=== PATIENT | female | born 1955 | race African-American/Black ===

== ENCOUNTER 2016-12-15 18:17 | Emergency (ER) | payer OTHER ==
[2016-12-15 18:25] VITALS: PULSE 55; TEMP 97.9; BMI 40.3
[2016-12-15] MEDS ORDERED: OXYCODONE/APAP 5/325MG COMBO TABLET PO ONE (19:56)
[2016-12-15] MEDS ORDERED: SODIUM CHLORIDE 1,000 ML IV SCH (20:00)
[2016-12-15] MEDS ORDERED: OXYCODONE/APAP 5/325MG COMBO TABLET ONE (20:04)
--- NOTE | 2016-12-15 20:05 | PDOC ---
History of Present Illness - General Chief Complaint: Injury Stated Complaint: PAIN Time Seen by Provider: 12/15/16 19:42 History Source: Patient Exam Limitations: No Limitations - History of Present Illness Initial Comments: 12/15/16 20:02 61yo Female patient presented to ED c/o bilateral knee pain. Patient states while trying to enter an ambulate she lost her balance while stepping up to enter the van. She reports she fell backwards, causing her left leg to bend behind her and right leg to "twist." Patient was helped back into wheelchair by staff and transported to her PCP office for appointment. Patient states she uses wheelchair all the time. She no longer ambulates independently or uses a cane or walker. Patient now reports while trying to get out of bed and around today, she is having increased pain, and feeling of something "floating" in her right knee. She reports hx total rt knee replacement in 2005, and severe arthritis to Lt knee. Patient reports taking Motrin and Tylenol with no relief of pain to knees. She denies CP, Abd pain, n/v/d, diff breathing, head or neck injury, or any other complaints at this time. Timing/Duration: getting worse Severity: moderate Modifying Factors: improves with: medication, rest Associated Symptoms: denies: denies symptoms, chest pain, cough, diaphoresis, fever/chills, headaches, loss of appetite, malaise, nausea/vomiting, rash, seizure, shortness of breath, syncope, weakness, other Past History - Travel Traveled outside of the country in the last 30 days: No Close contact w/someone who was outside of country & ill: No - Past Medical History Allergies/Adverse Reactions: Allergies Allergy/AdvReac Type Severity Reaction Status Date / Time morphine Allergy Verified 12/15/16 18:25 Home Medications: Ambulatory Orders Amlodipine Besylate [Norvasc -] 10 mg PO BID 10/02/14 Calcium Carbonate/Vitamin D3 [Calcium 500 + D Tablet] 1 each PO BID 10/02/14 Ferrous Sulfate [Feosol] 5 gm PO BID 10/02/14 Multivitamins [Multivit ([facility] Formulary)] 1 tab PO BID 10/02/14 Atenolol [Tenormin -] 1 tab PO DAILY 09/06/15 Cyanocobalamin [Vitamin B12 -] 1,000 mcg PO DAILY 12/15/16 Enalapril Maleate [Vasotec -] 10 mg PO BID 12/15/16 Lidocaine 5% Patch [Lidoderm -] 1 patch TP DAILY 12/15/16 Lorazepam [Ativan] 1 mg PO DAILY 12/15/16 Olopatadine HCl [Pataday] 2.5 ml OP TID 12/15/16 Oxycodone HCl/Acetaminophen [Percocet 10-325 mg Tablet] 1 each PO Q6H PRN #20 tablet MDD 4 TABS 12/16/16 Anemia: No Asthma: No Cancer: No Cardiac Disorders: No CVA: No COPD: No CHF: No Dementia: No Diabetes: No GI Disorders: No Disorders: No HTN: Yes Hypercholesterolemia: No Liver Disease: No Seizures: No Thyroid Disease: No - Surgical History Abdominal Surgery: Yes (GASTRIC BYPASS) Appendectomy: Yes Cardiac Surgery: No Cholecystectomy: Yes (10/05/14) Lung Surgery: No Neurologic Surgery: No Orthopedic Surgery: Yes (TOTAL R KNEE REPLACEMENT) - Psycho/Social/Smoking Cessation Hx Suicidal Ideation: No Smoking History: Never smoked Have you smoked in the past 12 months: No Information on smoking cessation initiated: No Hx Alcohol Use: No Drug/Substance Use Hx: No Substance Use Type: None Hx Substance Use Treatment: No Review of Systems - Review of Systems Able to Perform ROS?: Yes Is the patient limited [place] proficient: No Constitutional: No: Chills, Fever, Night Sweats, Weakness HEENTM: No: Blurred Vision, Double Vision, Nose Congestion, Throat Swelling Respiratory: No: Cough, Shortness of Breath, Stridor, Wheezing Cardiac (ROS): No: Chest Pain, Edema, Palpitations ABD/GI: No: Constipated, Diarrhea, Nausea, Poor Appetite, Poor Fluid Intake, Vomiting : No: Burning, Dysuria, Discharge, Frequency, Flank Pain, Hematuria, Pain, Urgency Musculoskeletal: Yes: Joint Pain, Joint Swelling, Muscle Weakness (Chronic). No : Back Pain, Muscle Pain, Neck Pain Integumentary: No: Dryness, Erythema, Rash Neurological: No: Headache, Numbness, Paresthesia, Seizure, Tingling, Tremors, Weakness, Ataxia, Dizziness Psychiatric: Yes: Anxiety. No: Depression All Other Systems: Reviewed and Negative *Physical Exam - Vital Signs Last Vital Signs Temp Pulse Resp BP Pulse Ox 97.9 F 55 L 17 155/97 98 12/15/16 18:23 12/15/16 18:23 12/15/16 18:23 12/15/16 18:23 12/15/16 18:23 - Physical Exam General Appearance: Yes: Nourished, Appropriately Dressed, Moderate Distress. No: Apparent Distress HEENT: positive: EOMI, TACO, Normal ENT Inspection, Normal Voice, Symmetrical, Pharynx Normal. negative: Nasal Congestion, Rhinorrhea, TM Bulging, TM Dull, TM Erythema Neck: positive: Trachea midline, Supple. negative: Tender, Rigid, Decreased range of motion, Stridor, Lymphadenopathy (R), Lymphadenopathy (L), Tender lateral, Tender midline Respiratory/Chest: positive: Lungs Clear, Normal Breath Sounds. negative: Respiratory Distress, Accessory Muscle Use, Labored Respiration, Rapid RR, Decreased Breath Sounds, Rhonchi, Stridor, Wheezing Cardiovascular: positive: Regular Rhythm, Regular Rate. negative: Edema, JVD, Murmur Gastrointestinal/Abdominal: positive: Normal Bowel Sounds, Soft. negative: Guarding, Rebound, Tenderness Musculoskeletal: positive: Normal Inspection. negative: CVA Tenderness, Decreased Range of Motion Extremity: positive: Normal Capillary Refill, Swelling, Other (Decreased ROM and moderate pain on passive ROM to Rt and Lt lower extremity. Moderate swelling to Rt knee w/o increased warmth or erythema.). negative: Normal Range of Motion, Erythema, Inflammation Integumentary: positive: Normal Color, Dry, Warm Neurologic: positive: insights manager II-XII NML intact, Fully Oriented, Alert, Normal Mood/ Affect, Normal Response ED Treatment Course - LABORATORY CBC & Chemistry Diagram: 12/15/16 20:10 12/15/16 20:10 - RADIOLOGY Radiology Studies Ordered: Category Date Time Status KNEE 2 POS-LEFT [RAD] Stat Radiology 12/15/16 19:55 Ordered KNEE 2 POS-RIGHT [RAD] Stat Radiology 12/15/16 19:55 Ordered *DC/Admit/Observation/Transfer Diagnosis at time of Disposition: Fall Qualifiers: Encounter type: initial encounter Qualified Code(s): W19.XXXA - Unspecified fall, initial encounter Knee pain, bilateral Qualifiers: Chronicity: acute Qualified Code(s): M25.561 - Pain in right knee; M25.562 - Pain in left knee Obesity Qualifiers: Obesity type: unspecified obesity type Obesity severity: morbid Qualified Code( s): E66.01 - Morbid (severe) obesity due to excess calories - Discharge Dispostion Disposition: HOME Condition at time of disposition: Improved Admit: No - Prescriptions Prescriptions: Oxycodone HCl/Acetaminophen [Percocet 10-325 mg Tablet] 1 each PO Q6H PRN #20 tablet MDD 4 TABS PRN Reason: Severe Pain - Patient Instructions Printed Discharge Instructions: DI for Knee Pain, How to Prevent Falls Additional Instructions: FOLLOW UP WITH YOUR DOCTOR DISCUSSED. TAKE MEDICATIONS PRESCRIBED. CALL TO SCHEDULE YOUR APPOINTMENT WITH YOUR DOCTOR. PERCOCET FOR PAIN NEEDED. APPLY COOL COMPRESS TO AFFECTED AREA EVERY 2 HOURS WHILE AWAKE FOR 10-15 MINS NEEDED ON AND OFF. Print Language: CROATIAN
[2016-12-15 21:45] LABS: BASOPHIL 0.5 % (0-2.0); EOSINOPHIL 2.1 % (0-4.5); MCHC 34.7 g/dl (32.0-36.0); MEAN CELL VOLUME 83.7 fl (80-96); MEAN PLT VOLUME 8.6 fl (7.5-11.1); NEUTROPHILS 51.8 % (42.8-82.8); PLATELET COUNT 213 K/MM3 (134-434); RDW 13.7 % (11.6-15.6); WHITE BLOOD COUNT 6.7 K/mm3 (4.0-10.0)
[2016-12-15 21:57] LABS: INR 1.27 (0.82-1.09)
[2016-12-15 22:09] LABS: ALBUMIN 3.4 g/dl (3.4-5.0); CALCIUM 8.7 mg/dL (8.5-10.1)
[2016-12-15 22:12] LABS: BILIRUBIN,TOTAL 0.7 mg/dL (0.2-1.0); TOT PROT 7.6 g/dl (6.4-8.2)
[2016-12-16 00:39] VITALS: BP 144/69
[2016-12-16] MEDS ORDERED: IBUPROFEN 400 MG TABLET (FP) PO ONE ×2 (01:43→01:48)
[2016-12-16] MEDS ORDERED: OXYCODONE/APAP 5/325MG COMBO TABLET PO ONE (01:43)
[2016-12-16] MEDS ORDERED: OXYCODONE/APAP 5/325MG COMBO TABLET ONE (01:48)
== END 2016-12-16 01:54 | disposition home or self-care (01) ==
LOC: JER 18:17
DX: M25.561 Pain in right knee (principal); M25.562 Pain in left knee; W17.89XA Other fall from one level to another, initial encounter; Y93.89 Activity, other specified; Y92.410 Unspecified street and highway as the place of occurrence of the external cause; Z98.84 Bariatric surgery status; Z96.651 Presence of right artificial knee joint; E66.01 Morbid (severe) obesity due to excess calories; Z68.41 Body mass index [BMI] 40.0-44.9, adult
CPT/HCPCS: 36415; 73560-TC-LT; 73560-TC-RT; 80053; 85025; 85610; 86850; 86900; 86901; 99281-25

== ENCOUNTER 2017-11-26 17:12 | Inpatient (IN) | payer OTHER ==
[2017-11-26 17:42] VITALS: BMI 36.0
--- NOTE | 2017-11-26 17:44 | PDOC ---
Rapid Medical Evaluation Time Seen by Provider: 11/26/17 17:39 Medical Evaluation: Allergies Allergy/AdvReac Type Severity Reaction Status Date / Time morphine Allergy Verified 11/26/17 17:39 11/26/17 17:39 Pt presents to the ED: dark red blood from rectum with defecation, vomiting up dark red blood, upper abd pain , denies asa, motrin use, denies gerd, hx gastric bypass in 2007 Pt on brief exam: vss, tender to epigastric area Pt ordered for: cbc, comp, ua Pt to proceed to the ED Discharge Disposition - Diagnosis Rectal bleeding - Referrals - Patient Instructions - Post Discharge Activity
[2017-11-26 18:05] LABS: BASO % 1.4 % (0-2.0); EOS % 1.3 % (0-4.5); HEMATOCRIT 37.3 % (32.4-45.2); HEMOGLOBIN 12.9 GM/dL (10.7-15.3); LYMPH % 46.6 % (8-40); MCH 29.9 pg (25.7-33.7); MCHC 34.5 g/dl (32.0-36.0); MEAN CELL VOLUME 86.5 fl (80-96); MEAN PLT VOLUME 8.3 fl (7.5-11.1); MONO % 7.2 % (3.8-10.2); NEUT % 43.5 % (42.8-82.8); PLATELET COUNT 229 K/MM3 (134-434); RBC 4.31 M/mm3 (3.60-5.2); RDW 13.4 % (11.6-15.6); WHITE BLOOD COUNT 6.5 K/mm3 (4.0-10.0)
[2017-11-26 18:32] LABS: URINE APPEARANCE CLEAR; URINE BILIRUBIN NEGATIVE (NEGATIVE); URINE BLOOD NEGATIVE (NEGATIVE); URINE COLOR YELLOW; URINE GLUCOSE (UA) NEGATIVE (NEGATIVE); URINE KETONE NEGATIVE (NEGATIVE); URINE LEUK ESTERASE NEGATIVE (NEGATIVE); URINE NITRITE NEGATIVE (NEGATIVE); URINE PROTEIN NEGATIVE (NEGATIVE); URINE UROBILINOGEN 4.0 E.U/dl mg/dL (0.2-1.0)
[2017-11-26 18:37] LABS: ALBUMIN 3.2 g/dl (3.4-5.0); ALK PHOS 59 U/L (45-117); ANION GAP 11 (8-16); BILIRUBIN,TOTAL 0.5 mg/dL (0.2-1.0); BLOOD UREA NITROGEN 29 mg/dL (7-18); CALCIUM 8.8 mg/dL (8.5-10.1); CHLORIDE 112 mmol/L (98-107); CO2 21 mmol/L (21-32); GLUCOSE,RANDOM 99 mg/dL (74-106); SGOT/AST 47 U/L (15-37); SGPT/ALT 37 U/L (12-78); SODIUM 144 mmol/L (136-145); TOT PROT 7.1 g/dl (6.4-8.2)
[2017-11-26] MEDS ORDERED: PANTOPRAZOLE SODIUM 40 MG VIAL IVPUSH ONE (19:34)
[2017-11-26] MEDS ORDERED: SODIUM CHLORIDE 0.9% 1000 ML INFUS.BAG IV ONE (19:36)
[2017-11-26] MEDS ORDERED: PANTOPRAZOLE SODIUM 40 MG/100 ML BAG IVPB ONE (19:42)
--- NOTE | 2017-11-26 19:43 | PDOC ---
History of Present Illness - General History Source: Patient Exam Limitations: No Limitations - History of Present Illness Initial Comments: 11/26/17 19:45 The patient is a 62 year old female, with a significant past medical history of gastric bypass, appendectomy, cholecystectomy, who presents to the emergency department with one episode of black stool 2 days ago followed by one episode of vomiting a bright red clump of blood yesterday, and new onset of dark blood with a bowel movement today. The patient states she had one very dark stool 2 days ago. The patient reportedly experienced a strange feeling in her throat yesterday and forced up a clump of bright red. She denies recent pepto bismol use. She denies aspiring use and states she only uses Tylenol. She denies experiencing these symptoms in the past. She denies chest pain, shortness of breath, headache and dizziness. She denies fever, chills, nausea, diarrhea and constipation. She denies dysuria, frequency , urgency and hematuria. Allergies: morphine Social history: Pt denies tobacco use or alcohol use. PCP: Dr. Villavicencio <Elza Rock - Last Filed: 11/26/17 19:50> <Tana Faustin - Last Filed: 11/26/17 20:46> - General Chief Complaint: Rectal Bleed Stated Complaint: RECTAL BLEEDING Time Seen by Provider: 11/26/17 17:39 Past History <Elza Rock - Last Filed: 11/26/17 19:50> - Past Medical History Anemia: No Asthma: No Cancer: No Cardiac Disorders: No CVA: No COPD: No CHF: No Dementia: No Diabetes: No GI Disorders: No Disorders: No HTN: Yes Hypercholesterolemia: No Liver Disease: No Seizures: No Thyroid Disease: No - Surgical History Abdominal Surgery: Yes (GASTRIC BYPASS) Appendectomy: Yes Cardiac Surgery: No Cholecystectomy: Yes (10/05/14) Lung Surgery: No Neurologic Surgery: No Orthopedic Surgery: Yes (TOTAL R KNEE REPLACEMENT) - Suicide/Smoking/Psychosocial Hx Smoking History: Never smoked Have you smoked in the past 12 months: No Hx Alcohol Use: No Drug/Substance Use Hx: No Substance Use Type: None Hx Substance Use Treatment: No <Tana Faustin - Last Filed: 11/26/17 20:46> - Past Medical History Allergies/Adverse Reactions: Allergies Allergy/AdvReac Type Severity Reaction Status Date / Time morphine Allergy Verified 11/26/17 17:39 Home Medications: Ambulatory Orders Calcium Carbonate/Vitamin D3 [Calcium 500 + D Tablet] 1 each PO BID 10/02/14 Ferrous Sulfate [Feosol] 325 gm PO BID 10/02/14 Multivitamins [Multivit ([facility] Formulary)] 1 tab PO BID 10/02/14 Atenolol [Tenormin -] 100 tab PO DAILY 09/06/15 Cyanocobalamin [Vitamin B12 -] 1,000 mcg PO DAILY 12/15/16 Enalapril Maleate [Vasotec -] 10 mg PO BID 12/15/16 Lorazepam [Ativan] 1 mg PO DAILY 12/15/16 Oxycodone HCl/Acetaminophen [Percocet 10-325 mg Tablet] 1 each PO Q6H PRN #20 tablet MDD 4 TABS 12/16/16 Diphenhydramine [Benadryl -] 25 mg PO BID 11/26/17 Escitalopram Oxalate [Lexapro -] 10 mg PO DAILY 11/26/17 Valacyclovir HCl [Valtrex -] 500 mg PO BID 11/26/17 Review of Systems - Review of Systems Able to Perform ROS?: Yes Comments:: 11/26/17 19:46 GENERAL/CONSTITUTIONAL: No fever or chills. No weakness. HEAD, EYES, EARS, NOSE AND THROAT: No change in vision. No ear pain or discharge. No sore throat. GASTROINTESTINAL: (+) black stools, bright red blood per rectum, and hematemesis. No nausea, diarrhea or constipation. GENITOURINARY: No dysuria, frequency, or change in urination. CARDIOVASCULAR: No chest pain or shortness of breath. RESPIRATORY: No cough, wheezing, or hemoptysis. MUSCULOSKELETAL: No joint or muscle swelling or pain. No neck or back pain. SKIN: No rash NEUROLOGIC: No headache, vertigo, loss of consciousness, or change in strength/ sensation. ENDOCRINE: No increased thirst. No abnormal weight change. HEMATOLOGIC/LYMPHATIC: No anemia, easy bleeding, or history of blood clots. ALLERGIC/IMMUNOLOGIC: No hives or skin allergy. <Elza Rock - Last Filed: 11/26/17 19:50> *Physical Exam - Vital Signs Last Vital Signs Temp Pulse Resp BP Pulse Ox 98.4 F 60 19 128/80 100 11/26/17 17:39 11/26/17 17:39 11/26/17 17:39 11/26/17 17:39 11/26/17 17:39 - Physical Exam Comments: 11/26/17 19:47 Constitutional: Awake, alert, oriented. No acute distress. Head: Normocephalic. Atraumatic Eyes: PERRL. EOMI. Conjunctivae are not pale. ENT: Mucous membranes are moist and intact. Posterior pharynx without exudates or erythema. Uvula midline. Neck: Supple. Full ROM. No lymphadenopathy. Cardiovascular: Regular rate. Regular rhythm. S1, S2 regular. Distal pulses are 2+ and symmetric. Pulmonary/Chest: No evidence of respiratory distress. Clear to auscultation bilaterally No wheezing, rales or rhonchi. Abdominal: Soft and non-distended. There is no tenderness. No rebound, guarding or rigidity. No organomegaly. No palpable masses. Good bowel sounds. Rectal: (+) black stool in rectal vault. No masses or hemorrhoids. Back: No CVA tenderness. Musculoskeletal: No edema. No cyanosis. No clubbing. Full range of motion in all extremities. No calf tenderness. Radial/pedal pulses are intact and 2+ bilaterally Skin: Skin is warm and dry. No petechiae. No purpura. Neurological: Alert and oriented to person, place, and time. Cranial nerves II -XII are grossly intact. Normal speech. Strength is grossly symmetric. No sensory deficits. Psychiatric: Good eye contact. Normal interaction, affect and behavior. <Elza Rock - Last Filed: 11/26/17 19:50> - Vital Signs Last Vital Signs Temp Pulse Resp BP Pulse Ox 98.4 F 60 19 128/80 100 11/26/17 17:39 11/26/17 17:39 11/26/17 17:39 11/26/17 17:39 11/26/17 17:39 <Tana Faustin - Last Filed: 11/26/17 20:46> Heart Score/ECG Review - ECG Intrepretation Comment:: 11/26/17 20:45 sinus aimee at 54, nl axis, nl interval, q waves anteriorly that are age indeterminate, baseline artifact, no acute changes <Tana Faustin - Last Filed: 11/26/17 20:46> ED Treatment Course - LABORATORY CBC & Chemistry Diagram: 11/26/17 18:00 11/26/17 18:00 - ADDITIONAL ORDERS Additional order review: Laboratory Results 11/26/17 11/26/17 18:20 18:00 Sodium 144 Potassium 4.0 Chloride 112 H Carbon Dioxide 21 Anion Gap 11 BUN 29 H D Creatinine 1.0 Creat Clearance w eGFR 56.00 Random Glucose 99 Calcium 8.8 Total Bilirubin 0.5 D AST 47 H ALT 37 Alkaline Phosphatase 59 Total Protein 7.1 Albumin 3.2 L Urine Color Yellow Urine Appearance Clear Urine pH 7.0 Ur Specific [place] 1.026 Urine Protein Negative Urine Glucose (UA) Negative Urine Ketones Negative Urine Blood Negative Urine Nitrite Negative Urine Bilirubin Negative Urine Urobilinogen 4.0 e.u/dl H Ur Leukocyte Esterase Negative 11/26/17 18:00 RBC 4.31 MCV 86.5 MCHC 34.5 RDW 13.4 MPV 8.3 Neutrophils % 43.5 Lymphocytes % 46.6 H D Monocytes % 7.2 Eosinophils % 1.3 Basophils % 1.4 <Elza Rock - Last Filed: 11/26/17 19:50> - LABORATORY CBC & Chemistry Diagram: 11/26/17 18:00 11/26/17 18:00 - ADDITIONAL ORDERS Additional order review: Laboratory Results 11/26/17 11/26/17 18:20 18:00 Sodium 144 Potassium 4.0 Chloride 112 H Carbon Dioxide 21 Anion Gap 11 BUN 29 H D Creatinine 1.0 Creat Clearance w eGFR 56.00 Random Glucose 99 Calcium 8.8 Total Bilirubin 0.5 D AST 47 H ALT 37 Alkaline Phosphatase 59 Total Protein 7.1 Albumin 3.2 L Urine Color Yellow Urine Appearance Clear Urine pH 7.0 Ur Specific [place] 1.026 Urine Protein Negative Urine Glucose (UA) Negative Urine Ketones Negative Urine Blood Negative Urine Nitrite Negative Urine Bilirubin Negative Urine Urobilinogen 4.0 e.u/dl H Ur Leukocyte Esterase Negative 11/26/17 18:00 RBC 4.31 MCV 86.5 MCHC 34.5 RDW 13.4 MPV 8.3 Neutrophils % 43.5 Lymphocytes % 46.6 H D Monocytes % 7.2 Eosinophils % 1.3 Basophils % 1.4 <Tana Faustin - Last Filed: 11/26/17 20:46> Medical Decision Making - Medical Decision Making 11/26/17 19:34 A message was left requesting a call back from Dr. Kassandra Villavicencio regarding patient admission. 11/26/17 19:38 Dr. Villavicencio called back and the patient's case was discussed. She accepts admission and requests Dr. Tidwell for GI consult. 11/26/17 19:42 Patient case discussed with Dr. Tidwell, GI specialist. <Elza Rock - Last Filed: 11/26/17 19:50> - Medical Decision Making 11/26/17 19:37 a/p: 62yo female with symptoms concerning for UGIB -hx of gastric bypass -gi at [facility] -will check labs -will give PPI -will repeat H/H -will need admission -stool for heme -black stool on rectal -tele -ekg -cxr case discussed with Dr. Villavicencio who accepts pt to service. Requests GI to be Dr. Tidwell. call placed to DR. Tidwell 11/26/17 20:[address] Tidwell who will see the patient in consult. <Tana Faustin - Last Filed: 11/26/17 20:46> *DC/Admit/Observation/Transfer - Attestations Scribe Attestion: 11/26/17 19:48 Documentation prepared by Elza Rock, acting as medical record retrieval specialist for Tana Faustin DO, <Elza Rock - Last Filed: 11/26/17 19:50> - Discharge Dispostion Admit: Yes - Attestations Physician Attestion: 11/26/17 19:45 I, Dr. Tana Faustin DO, attest that this document has been prepared under my direction and personally reviewed by me in its entirety. I further attest, that it accurately reflects all work, treatment, procedures and medical decision -making performed by me. <Tana Faustin - Last Filed: 11/26/17 20:46> Diagnosis at time of Disposition: UGIB (upper gastrointestinal bleed) - Discharge Dispostion Condition at time of disposition: Fair - Referrals Referrals: Kassandra Villavicencio MD [Primary Care Provider] - - Patient Instructions - Post Discharge Activity
[2017-11-26 20:36] LABS: BASO % 0.7 % (0-2.0); EOS % 1.4 % (0-4.5); HEMATOCRIT 36.5 % (32.4-45.2); HEMOGLOBIN 12.4 GM/dL (10.7-15.3); LYMPH % 47.7 % (8-40); MCH 29.9 pg (25.7-33.7); MCHC 33.9 g/dl (32.0-36.0); MEAN CELL VOLUME 88.2 fl (80-96); MEAN PLT VOLUME 8.3 fl (7.5-11.1); MONO % 7.8 % (3.8-10.2); NEUT % 42.4 % (42.8-82.8); PLATELET COUNT 209 K/MM3 (134-434); RBC 4.14 M/mm3 (3.60-5.2); RDW 13.3 % (11.6-15.6); WHITE BLOOD COUNT 5.7 K/mm3 (4.0-10.0)
[2017-11-27 06:53] LABS: BASO % 0.9 % (0-2.0); EOS % 2.1 % (0-4.5); HEMATOCRIT 30.8 % (32.4-45.2); HEMOGLOBIN 10.6 GM/dL (10.7-15.3); MCH 30.3 pg (25.7-33.7); MCHC 34.5 g/dl (32.0-36.0); MEAN CELL VOLUME 87.8 fl (80-96); MEAN PLT VOLUME 8.6 fl (7.5-11.1); MONO % 11.6 % (3.8-10.2); NEUT % 34.4 % (42.8-82.8); PLATELET COUNT 177 K/MM3 (134-434); RBC 3.51 M/mm3 (3.60-5.2); RDW 13.6 % (11.6-15.6); WHITE BLOOD COUNT 6.4 K/mm3 (4.0-10.0)
[2017-11-27] MEDS: DEXTROSE 5%-0.45% SALINE 1,000 ML IV SCH (08:20)
[2017-11-27] MEDS ORDERED: PANTOPRAZOLE SODIUM 80 MG in SODIUM CHLORIDE 100 ML IVPB SCH (09:30)
[2017-11-27] MEDS ORDERED: PANTOPRAZOLE SODIUM 40 MG VIAL ONE ×2 (09:34→09:35)
[2017-11-27] MEDS ORDERED: PANTOPRAZOLE SODIUM 40 MG VIAL IVPUSH SCH (10:00)
--- NOTE | 2017-11-27 10:03 | CON.GI ---
Consult Consult Specialty:: GI: Dr. Swanson covering for Dr. Tidwell Referred by:: Dr. Villavicencio Reason for Consultation:: GI Bleed - History of Present Illness Chief Complaint: "I had dark blood in my mouth sunday and my stool was black" History of Present Illness: 62F admitted through [facility] ER for evaluation of suspected GI bleeding. Ms. Brasher states that on Sunday in the evening she spit up dark blood and clots. Her stool was then black. yesterday she had a black / dark bloody BM and came to the ER. Initial Hgb was 12.9. This morning's Hgb was 10.6. She has not had a BM since prior to admission yesterday. She denies NSAID use including ASA and denies similar episodes in the past. She denies abdominal pain, nausea , vomiting, lightheadedness/dizziness or shortness of breath. She is followed by Dr. Adin Juarez who last performed EGD/Colonoscopy 09/02. Colonoscopy led to the removal of a cecal and sigmoid tubular adenoma while EGD revealed a gastric polyp (benign gastric mucosa, h. pylori negative) in the gastric remnant with otherwise normal appearing gastric bypass anatomy. She has been given IV fluids and protonix in ED. Vitals signs have remained stable. There is no family history of colorectal cancer or other GI malignancy. - History Source History Provided By: Patient, Medical Record Limitations to Obtaining History: No Limitations - Past Medical History Cardio/Vascular: Yes: HTN - Past Surgical History Past Surgical History: Yes: Bypass (gastric bypass, misa-en-y in 2007), Cholecystectomy (laparoscopic 2013), Joint Replacement (total right knee replacement) - Alcohol/Substance Use Hx Alcohol Use: No - Smoking History Smoking history: Never smoked Have you smoked in the past 12 months: No - Social History Usual Living Arrangement: Alone ADL: Independent Occupation: disabled Place of : [employer] History of Recent Travel: No Home Medications - Allergies Allergies/Adverse Reactions: Allergies Allergy/AdvReac Type Severity Reaction Status Date / Time morphine Allergy Verified 11/26/17 17:39 - Home Medications Home Medications: Ambulatory Orders Calcium Carbonate/Vitamin D3 [Calcium 500 + D Tablet] 1 each PO BID 10/02/14 Ferrous Sulfate [Feosol] 325 gm PO BID 10/02/14 Multivitamins [Multivit ([facility] Formulary)] 1 tab PO BID 10/02/14 Atenolol [Tenormin -] 100 tab PO DAILY 09/06/15 Cyanocobalamin [Vitamin B12 -] 1,000 mcg PO DAILY 12/15/16 Enalapril Maleate [Vasotec -] 10 mg PO BID 12/15/16 Lorazepam [Ativan] 1 mg PO DAILY 12/15/16 Oxycodone HCl/Acetaminophen [Percocet 10-325 mg Tablet] 1 each PO Q6H PRN #20 tablet MDD 4 TABS 12/16/16 Diphenhydramine [Benadryl -] 25 mg PO BID 11/26/17 Escitalopram Oxalate [Lexapro -] 10 mg PO DAILY 11/26/17 Valacyclovir HCl [Valtrex -] 500 mg PO BID 11/26/17 Family Disease History - Family Disease History Family Disease History: Other: Father ( 94: dementia), Mother (: 88: dementia), Brother (2, healthy), Sister (1, healthy), Son (none), Daughter (none ) Other Family History: no family history of colorectal cancer or other GI malignancy Review of Systems - Review of Systems Constitutional: denies: Fever Cardiovascular: denies: Chest Pain Respiratory: denies: SOB Gastrointestinal: reports: Melena, Rectal Bleeding. denies: Constipation, Nausea Musculoskeletal: reports: Back Pain Physical Exam-GI Vital Signs: Vital Signs Temperature 98.4 F 11/26/17 17:39 Pulse Rate 57 L 11/27/17 08:43 Respiratory Rate 16 11/27/17 08:43 Blood Pressure 112/64 11/27/17 08:43 O2 Sat by Pulse Oximetry (%) 99 11/27/17 08:43 Constitutional: Yes: Calm Eyes: No: Sclera Icterus Cardiovascular: Yes: Regular Rate and Rhythm. No: Murmur Respiratory: Yes: CTA Bilaterally Gastrointestinal Inspection: Yes: Scars (healed trochar scars) ...Auscultate: Yes: Normoactive Bowel Sounds ...Palpate: No: Hepatomegaly, Splenomegaly, Tenderness ...Percussion: No: Tympanitic ...Rectal Exam: Yes: Other (No external lesions, no masses, dark brown/black stool) Edema: Yes Edema: LLE: Trace, RLE: Trace Neurological: Yes: Alert, Oriented Labs: CBC, BMP 11/27/17 06:34 11/26/17 18:00 Hepatic Panel Total Bilirubin 0.5 mg/dL (0.2-1.0) D 11/26/17 18:00 AST 47 U/L (15-37) H 11/26/17 18:00 ALT 37 U/L (12-78) 11/26/17 18:00 Alkaline Phosphatase 59 U/L (45-117) 11/26/17 18:00 Albumin 3.2 g/dl (3.4-5.0) L 11/26/17 18:00 Imaging - Results X-ray: Report Reviewed Problem List - Problems (1) UGIB (upper gastrointestinal bleed) Assessment/Plan: Suspected UGIB. Ms. Turner remains hemodynamically stable and has not had a BM since admission. I suspect that her drop in H/H reflects equilibration along with IV hydration in the setting of her bleed. Advise the following: Monitor H/H. Ms. Turner is being admitted to telemetry Clear liquids for lunch Advised Ms. Turner's nurse to give the 40mg IVPB of protonix today and then start protonix infusion @8mg/hr We discussed upper endoscopy to further assess potential causes of her bleeding such as bleeding blood vessels, varices, PUD, marginal ulceration of the anastamosis, polyps or malignancies of the intestinal tract. We discussed potential risks of the procedure like but not limited to bleeding, perforation requiring surgery marta repair, infection, sedation medication effects all of which could be potentially life threatening. She has agreed to the procedure. If overt bleeding and change in hemodynamics, would transfer to ICU setting Code(s): K92.2 - GASTROINTESTINAL HEMORRHAGE, UNSPECIFIED
[2017-11-27] MEDS: ENALAPRIL MALEATE 10 MG TABLET (FP) PO SCH (10:30)
[2017-11-27] MEDS: ATENOLOL 50 MG TABLET (FP) PO SCH (10:30)
[2017-11-27] MEDS: PANTOPRAZOLE SODIUM 160 MG in DEXTROSE 5%-WATER - 290 ML IVPB SCH (11:11)
--- NOTE | 2017-11-27 15:11 | EKG ---
Test Reason : Blood Pressure : / mmHG Vent. Rate : 054 BPM Atrial Rate : 054 BPM P-R Int : 106 ms QRS Dur : 072 ms QT Int : 460 ms P-R-T Axes : 033 019 054 degrees QTc Int : 436 ms POOR DATA QUALITY, INTERPRETATION MAY BE ADVERSELY AFFECTED SINUS BRADYCARDIA WITH SHORT UT SEPTAL INFARCT , AGE UNDETERMINED ABNORMAL ECG Confirmed by Cruz Ramirez MD ([id number]) on 11/27/2017 3:11:33 PM Referred By: Confirmed By:Cruz Ramirez MD
[2017-11-27 15:29] LABS: HEMATOCRIT 33.1 % (32.4-45.2); HEMOGLOBIN 11.4 GM/dL (10.7-15.3); MCH 30.2 pg (25.7-33.7); MCHC 34.3 g/dl (32.0-36.0); MEAN PLT VOLUME 8.5 fl (7.5-11.1); PLATELET COUNT 199 K/MM3 (134-434); RBC 3.76 M/mm3 (3.60-5.2); RDW 13.5 % (11.6-15.6)
[2017-11-27 18:06] LABS: ANION GAP 7 (8-16); BLOOD UREA NITROGEN 24 mg/dL (7-18); CALCIUM 8.1 mg/dL (8.5-10.1); CHLORIDE 113 mmol/L (98-107); CO2 23 mmol/L (21-32); CREATININE 0.9 mg/dL (0.55-1.02); GLUCOSE,RANDOM 95 mg/dL (74-106); POTASSIUM 3.9 mmol/L (3.5-5.1); SODIUM 143 mmol/L (136-145)
--- NOTE | 2017-11-27 23:30 | HP ---
Admitting History and Physical - Admission Chief Complaint: black stools and hematemesis 2 days ago History of Present Illness: 62 yo female with morbid obesity s/p gastric bypass surgery developed hematemesis and black tarry stools.She presented to ER for further evaluation. The a[ptient complains of mild epigastric discomfort associated with the episode of GI bleed. History Source: Patient Limitations to Obtaining History: No Limitations - Past Medical History Cardiovascular: Yes: HTN ...: No - Past Surgical History Past Surgical History: Yes: Bypass (gastric bypass, misa-en-y in 2007), Cholecystectomy (laparoscopic 2013), Joint Replacement (total right knee replacement) - Smoking History Smoking history: Never smoked Have you smoked in the past 12 months: No If you are a former smoker, when did you quit?: 2009 - Alcohol/Substance Use Hx Alcohol Use: No - Social History ADL: Independent Occupation: disabled History of Recent Travel: No Home Medications - Allergies Allergies/Adverse Reactions: Allergies Allergy/AdvReac Type Severity Reaction Status Date / Time morphine Allergy Verified 11/26/17 17:39 - Home Medications Home Medications: Ambulatory Orders Calcium Carbonate/Vitamin D3 [Calcium 500 + D Tablet] 1 each PO BID 10/02/14 Ferrous Sulfate [Feosol] 325 gm PO BID 10/02/14 Multivitamins [Multivit ([facility] Formulary)] 1 tab PO BID 10/02/14 Atenolol [Tenormin -] 100 tab PO DAILY 09/06/15 Cyanocobalamin [Vitamin B12 -] 1,000 mcg PO DAILY 12/15/16 Enalapril Maleate [Vasotec -] 10 mg PO BID 12/15/16 Lorazepam [Ativan] 1 mg PO DAILY 12/15/16 Oxycodone HCl/Acetaminophen [Percocet 10-325 mg Tablet] 1 each PO Q6H PRN #20 tablet MDD 4 TABS 12/16/16 Diphenhydramine [Benadryl -] 25 mg PO BID 11/26/17 Escitalopram Oxalate [Lexapro -] 10 mg PO DAILY 11/26/17 Valacyclovir HCl [Valtrex -] 500 mg PO BID 11/26/17 Family Disease History - Family Disease History Family Disease History: Other: Father ( 94: dementia), Mother (: 88: dementia), Brother (2, healthy), Sister (1, healthy), Son (none), Daughter (none ) Other Family History: no family history of colorectal cancer or other GI malignancy Review of Systems - Review of Systems Constitutional: reports: No Symptoms Eyes: reports: No Symptoms HENT: reports: No Symptoms Neck: reports: No Symptoms Cardiovascular: reports: No Symptoms Respiratory: reports: No Symptoms Gastrointestinal: reports: Melena, Other (hematemesis and dark stools) Genitourinary: reports: No Symptoms Breasts: reports: No Symptoms Reported Neurological: reports: No Symptoms Psychiatric: reports: No Symptoms Physical Examination Vital Signs: Vital Signs Temperature 98.8 F 11/27/17 17:00 Pulse Rate 53 L 11/27/17 17:00 Respiratory Rate 18 11/27/17 17:00 Blood Pressure 126/66 11/27/17 17:00 O2 Sat by Pulse Oximetry (%) 98 11/27/17 16:04 Constitutional: Yes: No Distress, Calm Eyes: Yes: Conjunctiva Clear, EOM Intact HENT: Yes: Atraumatic, Normocephalic Neck: Yes: Supple, Trachea Midline Cardiovascular: Yes: Regular Rate and Rhythm, S1, S2 Respiratory: Yes: Regular, CTA Bilaterally Gastrointestinal: Yes: Normal Bowel Sounds, Soft, Abdomen, Obese, Hematemesis, Melena. No: Hepatomegaly, Splenomegaly Musculoskeletal: Yes: WNL Extremities: No: Calf Tenderness Edema: No Peripheral Pulses WNL: Yes Neurological: Yes: Alert, Oriented Psychiatric: Yes: Alert, Oriented Labs: CBC, BMP 11/27/17 14:45 11/27/17 16:30 Problem List - Problems (1) UGIB (upper gastrointestinal bleed) Assessment/Plan: npo protonix 40 mg iv upper endoscopy monitor CBC telemetry monitoring Code(s): K92.2 - GASTROINTESTINAL HEMORRHAGE, UNSPECIFIED (2) Obesity Code(s): E66.9 - OBESITY, UNSPECIFIED Qualifiers: Obesity type: unspecified obesity type Qualified Code(s): E66.01 - Morbid ( severe) obesity due to excess calories (3) HTN (hypertension) Assessment/Plan: continue Enalapril and Atenolol Code(s): I10 - ESSENTIAL (PRIMARY) HYPERTENSION
[2017-11-28] MEDS ORDERED: oxyCODONE HCL 5 MG TABLET PO PRN (04:03)
[2017-11-28] MEDS: DEXTROSE 5%-0.45% SALINE 1,000 ML IV SCH (06:09)
[2017-11-28] MEDS: PANTOPRAZOLE SODIUM 160 MG in DEXTROSE 5%-WATER - 290 ML IVPB SCH (06:09)
[2017-11-28 08:46] LABS: INR 1.17 (0.82-1.09); PROTHROMBIN TIME (PATIENT) 13.2 SEC (9.98-11.88)
[2017-11-28 08:48] LABS: BASO % 0.7 % (0-2.0); EOS % 3.4 % (0-4.5); HEMATOCRIT 31.9 % (32.4-45.2); HEMOGLOBIN 10.7 GM/dL (10.7-15.3); LYMPH % 52.1 % (8-40); MCH 29.6 pg (25.7-33.7); MCHC 33.5 g/dl (32.0-36.0); MEAN CELL VOLUME 88.4 fl (80-96); MEAN PLT VOLUME 8.5 fl (7.5-11.1); MONO % 9.7 % (3.8-10.2); NEUT % 34.1 % (42.8-82.8); PLATELET COUNT 166 K/MM3 (134-434); RBC 3.61 M/mm3 (3.60-5.2); RDW 13.3 % (11.6-15.6); WHITE BLOOD COUNT 4.8 K/mm3 (4.0-10.0)
[2017-11-28 09:07] LABS: ALBUMIN 2.8 g/dl (3.4-5.0); ANION GAP 7 (8-16); BLOOD UREA NITROGEN 16 mg/dL (7-18); CALCIUM 8.3 mg/dL (8.5-10.1); CHLORIDE 113 mmol/L (98-107); CO2 24 mmol/L (21-32); GLUCOSE,RANDOM 100 mg/dL (74-106); POTASSIUM 3.7 mmol/L (3.5-5.1); SODIUM 144 mmol/L (136-145)
[2017-11-28 09:12] LABS: ALK PHOS 52 U/L (45-117); BILIRUBIN,TOTAL 0.5 mg/dL (0.2-1.0); CREATININE 0.8 mg/dL (0.55-1.02); SGOT/AST 44 U/L (15-37); SGPT/ALT 34 U/L (12-78); TOT PROT 6.1 g/dl (6.4-8.2)
[2017-11-28] MEDS: ATENOLOL 50 MG TABLET (FP) PO SCH ×2 (09:47→13:10)
[2017-11-28] MEDS: ENALAPRIL MALEATE 10 MG TABLET (FP) PO SCH ×2 (09:48→13:11)
[2017-11-28] MEDS ORDERED: PROPOFOL 20 ML ONE ×2 (10:33)
[2017-11-28] MEDS ORDERED: LIDOCAINE HCL/PF 2% SDV 5ML VIAL ONE (10:33)
[2017-11-28] MEDS ORDERED: LIDOCAINE HCL 2% 100 MG/5 ML DISP.SYRIN ONE (10:34)
--- NOTE | 2017-11-28 11:34 | PN ---
Progress Note (short form) - Note Progress Note: GI procedure NOte: Please see scanned EGD report. An ulcer was found on the gastric bypass anastomoiss which is no longer bleeding. Will need PPI BID until EGD is repeated in 3 months to asure healing. Instructed to avoid NSAIDs. Will advance diet.. She will followup with my associate Dr Adin Juarez
[2017-11-28] MEDS ORDERED: MAG HYDROX/AL HYDROX/SIMETH 30 ML UNIT-DOSE CUP PO SCH (11:45)
[2017-11-28] MEDS: MAG HYDROX/AL HYDROX/SIMETH 30 ML UNIT-DOSE CUP PO SCH ×2 (13:28→21:13)
[2017-11-28] MEDS: PANTOPRAZOLE 40 MG TABLET (FP) PO SCH ×2 (13:29→21:13)
[2017-11-28] MEDS: oxyCODONE HCL 5 MG TABLET PO PRN (21:13)
[2017-11-28] MEDS ORDERED: PANTOPRAZOLE 40 MG TABLET (FP) PO SCH (22:00)
--- NOTE | 2017-11-28 22:52 | PN ---
Progress Note, Physician History of Present Illness: no complaints, had the endoscopy today which diagnosed a non bleeding ulcer of the surgical by pass anastomosys - Current Medication List Current Medications: Active Medications Acetaminophen (Tylenol -) 650 mg PO Q6H PRN Al Hydroxide/Mg Hydroxide (Mylanta Oral Suspension -) 30 ml PO Q6H [facility] Last Admin: 11/28/17 21:13 Dose: 30 ml Atenolol (Tenormin -) 100 mg PO DAILY [facility] Last Admin: 11/28/17 13:10 Dose: 100 mg Enalapril Maleate (Vasotec -) 10 mg PO DAILY [facility] Last Admin: 11/28/17 13:11 Dose: 10 mg Oxycodone HCl (Roxicodone -) 10 mg PO Q6H PRN PRN Reason: PAIN LEVEL 6-10 Last Admin: 11/28/17 21:13 Dose: 10 mg Pantoprazole Sodium (Protonix -) 40 mg PO BID [facility] Last Admin: 11/28/17 21:13 Dose: 40 mg - Objective Vital Signs: Vital Signs Temperature 98.0 F 11/28/17 17:00 Pulse Rate 55 L 11/28/17 17:00 Respiratory Rate 18 11/28/17 17:00 Blood Pressure 137/73 11/28/17 17:00 O2 Sat by Pulse Oximetry (%) 99 11/28/17 11:40 Constitutional: Yes: No Distress, Calm Eyes: Yes: Conjunctiva Clear, EOM Intact HENT: Yes: Atraumatic, Normocephalic Neck: Yes: Supple Cardiovascular: Yes: Regular Rate and Rhythm, S1, S2 Labs: CBC, BMP 11/28/17 07:09 11/28/17 07:09 INR, PTT INR 1.17 (0.82-1.09) H 11/28/17 07:09 Problem List - Problems (1) UGIB (upper gastrointestinal bleed) Assessment/Plan: npo protonix 40 mg iv upper endoscopy monitor CBC telemetry monitoring Code(s): K92.2 - GASTROINTESTINAL HEMORRHAGE, UNSPECIFIED (2) Obesity Code(s): E66.9 - OBESITY, UNSPECIFIED Qualifiers: Obesity type: unspecified obesity type Qualified Code(s): E66.01 - Morbid ( severe) obesity due to excess calories (3) HTN (hypertension) Assessment/Plan: continue Enalapril and Atenolol Code(s): I10 - ESSENTIAL (PRIMARY) HYPERTENSION
[2017-11-29] MEDS: MAG HYDROX/AL HYDROX/SIMETH 30 ML UNIT-DOSE CUP PO SCH ×4 (01:59→22:05)
[2017-11-29] MEDS: oxyCODONE HCL 5 MG TABLET PO PRN ×3 (04:15→22:05)
[2017-11-29] MEDS: ACETAMINOPHEN 325 MG TABLET (FP) PO PRN ×2 (04:16→12:11)
[2017-11-29 08:21] LABS: BASO % 1.3 % (0-2.0); EOS % 2.9 % (0-4.5); HEMATOCRIT 30.7 % (32.4-45.2); HEMOGLOBIN 10.3 GM/dL (10.7-15.3); LYMPH % 56.7 % (8-40); MCH 29.4 pg (25.7-33.7); MCHC 33.5 g/dl (32.0-36.0); MEAN CELL VOLUME 87.6 fl (80-96); MEAN PLT VOLUME 9.6 fl (7.5-11.1); MONO % 8.9 % (3.8-10.2); NEUT % 30.2 % (42.8-82.8); PLATELET COUNT 138 K/MM3 (134-434); RDW 13.4 % (11.6-15.6); RETICULOCYTES 2.43 % (0.5-1.5); WHITE BLOOD COUNT 5.2 K/mm3 (4.0-10.0)
[2017-11-29 08:45] LABS: CHLORIDE 114 mmol/L (98-107); POTASSIUM 3.8 mmol/L (3.5-5.1); SODIUM 144 mmol/L (136-145)
[2017-11-29 08:59] LABS: ANION GAP 8 (8-16); BLOOD UREA NITROGEN 14 mg/dL (7-18); CO2 22 mmol/L (21-32); CREATININE 0.9 mg/dL (0.55-1.02); GLUCOSE,RANDOM 87 mg/dL (74-106)
[2017-11-29] MEDS: PANTOPRAZOLE 40 MG TABLET (FP) PO SCH ×2 (09:09→22:05)
[2017-11-29] MEDS: ENALAPRIL MALEATE 10 MG TABLET (FP) PO SCH (09:10)
[2017-11-29] MEDS: ATENOLOL 50 MG TABLET (FP) PO SCH (09:10)
--- NOTE | 2017-11-29 13:18 | PATH ---
Surgical Pathology Report Patient Name: LESLIE AYERS Med. Rec. #: [id number] /Age/Gender: 1955 (Age: 62) / F Account: [id number] Location: 4 W TELEMETRY U Taken: 11/28/2017 Received: 11/28/2017 Reported: 11/29/2017 Physicians: Marina Aldana M.D. Specimen(s) Received A: BX ANASTOMOSIS B: BX GASTRIC Clinical History Preoperative diagnosis: GI bleed Postoperative diagnosis: Anastomotic ulcer, hiatal hernia, Schatzki's ring Final Diagnosis A. STOMACH, ANASTOMOSIS, BIOPSY: MILD CHRONIC GASTRITIS AND REACTIVE GASTROPATHY. IMMUNOSTAIN FOR H. PYLORI IS NEGATIVE. B. STOMACH, GASTRIC POUCH, BIOPSY: MILD CHRONIC GASTRITIS. IMMUNOSTAIN FOR H. PYLORI IS NEGATIVE. Electronically Signed Adarsh Jimenez M.D. Gross Description A. Received in formalin, labeled "biopsy anastomosis" are 2 coto, irregular portions of soft tissue averaging 0.2 cm. in greatest dimension. The specimens are submitted in toto in one cassette. B. Received in formalin, labeled "biopsy gastric pouch" are 2 coto, irregular portions of soft tissue averaging 0.3 cm. in greatest dimension. The specimens are submitted in toto in one cassette. DL/11/28/2017 saudi11/28/2017
--- NOTE | 2017-11-29 18:21 | PN ---
Progress Note, Physician Chief Complaint: Bleeding anastomosis ulcer, s/p upper endoscopy History of Present Illness: 62 yo female s/p endoscopy yesterday developed bradycardia during the night and morning. Her Atenolol was placed on hold in am and the HR corrected to upper 50 -ies. The patient is asymptomatic without chest pain, dyspnea or palpitations. - Current Medication List Current Medications: Active Medications Acetaminophen (Tylenol -) 650 mg PO Q6H PRN Last Admin: 11/29/17 12:11 Dose: 650 mg Al Hydroxide/Mg Hydroxide (Mylanta Oral Suspension -) 30 ml PO Q6H [facility] Last Admin: 11/29/17 13:11 Dose: 30 ml Atenolol (Tenormin -) 50 mg PO DAILY [facility] Enalapril Maleate (Vasotec -) 10 mg PO DAILY [facility] Last Admin: 11/29/17 09:10 Dose: 10 mg Oxycodone HCl (Roxicodone -) 10 mg PO Q6H PRN PRN Reason: PAIN LEVEL 6-10 Last Admin: 11/29/17 12:09 Dose: 10 mg Pantoprazole Sodium (Protonix -) 40 mg PO BID [facility] Last Admin: 11/29/17 09:09 Dose: 40 mg - Objective Vital Signs: Vital Signs Temperature 98.7 F 11/29/17 14:44 Pulse Rate 49 L 11/29/17 14:44 Respiratory Rate 20 11/29/17 14:44 Blood Pressure 131/67 11/29/17 14:44 O2 Sat by Pulse Oximetry (%) 98 11/29/17 09:00 Constitutional: Yes: No Distress, Calm Eyes: Yes: Conjunctiva Clear, EOM Intact HENT: Yes: Atraumatic, Normocephalic Neck: Yes: Supple, Trachea Midline Cardiovascular: Yes: Regular Rate and Rhythm, S1 Respiratory: Yes: Regular, CTA Bilaterally Gastrointestinal: Yes: Normal Bowel Sounds, Soft, Abdomen, Obese. No: Hepatomegaly, Splenomegaly Musculoskeletal: Yes: Other (bilateral knees pain) Edema: No Peripheral Pulses WNL: Yes Neurological: Yes: Alert, Oriented Psychiatric: Yes: Alert, Oriented Labs: CBC, BMP 11/29/17 07:09 11/29/17 07:09 INR, PTT INR 1.17 (0.82-1.09) H 11/28/17 07:09 Problem List - Problems (1) Bradycardia Assessment/Plan: decrease Atenolol to 50 mg po daily EKG in am telemetry monitoring Code(s): R00.1 - BRADYCARDIA, UNSPECIFIED (2) UGIB (upper gastrointestinal bleed) Assessment/Plan: npo protonix 40 mg po bid telemetry monitoring Code(s): K92.2 - GASTROINTESTINAL HEMORRHAGE, UNSPECIFIED (3) Obesity Assessment/Plan: low chol low na diet Code(s): E66.9 - OBESITY, UNSPECIFIED Qualifiers: Obesity type: unspecified obesity type (4) HTN (hypertension) Assessment/Plan: continue Enalapril and Atenolol monitor BP on Atenolol 50 mg daily Code(s): I10 - ESSENTIAL (PRIMARY) HYPERTENSION
[2017-11-30] MEDS: MAG HYDROX/AL HYDROX/SIMETH 30 ML UNIT-DOSE CUP PO SCH ×2 (01:33→07:52)
[2017-11-30 06:18] VITALS: PULSE 54; TEMP 98.7
[2017-11-30] MEDS ORDERED: LORazepam 1 MG TABLET PO ONE (07:30)
[2017-11-30] MEDS ORDERED: LORazepam 1 MG TABLET ONE (07:40)
[2017-11-30 08:09] LABS: SERUM IRON SATURATION 43 % (15-55); TOTAL IRON BINDING CAPACITY 261 ug/dL (250-450); UIBC 148 ug/dL (118-369)
[2017-11-30 08:13] LABS: BASO % 0.8 % (0-2.0); EOS % 3.7 % (0-4.5); HEMOGLOBIN 10.6 GM/dL (10.7-15.3); LYMPH % 54.7 % (8-40); MCH 29.9 pg (25.7-33.7); MCHC 34.2 g/dl (32.0-36.0); MEAN CELL VOLUME 87.5 fl (80-96); MEAN PLT VOLUME 8.3 fl (7.5-11.1); MONO % 10.4 % (3.8-10.2); NEUT % 30.4 % (42.8-82.8); PLATELET COUNT 180 K/MM3 (134-434); RBC 3.55 M/mm3 (3.60-5.2); RDW 13.5 % (11.6-15.6); WHITE BLOOD COUNT 4.6 K/mm3 (4.0-10.0)
[2017-11-30 08:55] VITALS: BP 130/70
--- NOTE | 2017-11-30 09:38 | EKG ---
Test Reason : Blood Pressure : / mmHG Vent. Rate : 048 BPM Atrial Rate : 048 BPM P-R Int : 136 ms QRS Dur : 086 ms QT Int : 470 ms P-R-T Axes : 026 027 039 degrees QTc Int : 419 ms SINUS BRADYCARDIA NONSPECIFIC T WAVE ABNORMALITY ABNORMAL ECG Confirmed by MD JOE, SHAWANDA ([id number]) on 11/30/2017 9:38:07 AM Referred By: Confirmed By:SHAWANDA DIAZ MD
[2017-11-30] MEDS: PANTOPRAZOLE 40 MG TABLET (FP) PO SCH (09:44)
[2017-11-30] MEDS: ACETAMINOPHEN 325 MG TABLET (FP) PO PRN (09:44)
[2017-11-30] MEDS: ENALAPRIL MALEATE 10 MG TABLET (FP) PO SCH (09:45)
[2017-11-30] MEDS: oxyCODONE HCL 5 MG TABLET PO PRN (09:46)
[2017-11-30] MEDS ORDERED: ATENOLOL 50 MG TABLET (FP) PO SCH (10:00)
== END 2017-11-30 11:25 | disposition home or self-care (01) | DRG 378 ==
LOC: JER 17:12 → JERBED 19:54 → J4W 11-27 15:59
PROVIDERS: ADMIT Internal Medicine; ATTEND Internal Medicine
PROC: 0DD68ZX Extraction of Stomach, Via Natural or Artificial Opening Endoscopic, Diagnostic (ICD-10-PCS; principal; 2017-11-28 10:30)
DX: K92.2 Gastrointestinal hemorrhage, unspecified (principal); R71.0 Precipitous drop in hematocrit; K25.9 Gastric ulcer, unspecified as acute or chronic, without hemorrhage or perforation; I10 Essential (primary) hypertension; E66.8 Other obesity; R00.1 Bradycardia, unspecified; Z68.36 Body mass index [BMI] 36.0-36.9, adult; K22.2 Esophageal obstruction; K44.9 Diaphragmatic hernia without obstruction or gangrene; Z98.84 Bariatric surgery status; Z96.651 Presence of right artificial knee joint
CPT/HCPCS: 36415; 71045-TC; 80048; 80053; 81003; 82272; 82728; 82941; 83540; 83550; 85025; 85027; 85044; 85610; 86850; 86900; 86901; 88305-TC; 93005; 93010; 99284-25

== ENCOUNTER 2025-06-07 17:08 | Inpatient (IN) | payer OTHER ==
[2025-06-07] MEDS ORDERED: KETOROLAC TROMETHAMINE 30 MG/1 ML VIAL ONE (17:28)
[2025-06-07] MEDS: KETOROLAC TROMETHAMINE 30 MG/1 ML VIAL IVPUSH ONE (17:34)
[2025-06-07 18:57] LABS: ABSOLUTE IMMATURE GRANULOCYTES 0.03 x10^3/uL (0.0-0.031); BASOPHILS # 0.04 x10^3/uL (0.01-0.08); EOSINOPHIL % 1.0 % (0.7-5.8); EOSINOPHILS # 0.08 x10^3/uL (0.04-0.36); MCHC 34.2 g/dl (32.2-35.5); MEAN CELL VOLUME 84.5 fl (79.4-94.8); MEAN PLT VOLUME 9.6 fl (9.4-12.3); MONOCYTE # 0.93 x10^3/uL (0.24-0.86); MONOCYTE % 11.4 % (4.7-12.5); RDW 13.1 % (12.4-16.4)
[2025-06-07 19:05] LABS: INR 1.12 (0.83-1.09); PROTHROMBIN TIME (PATIENT) 12.2 SEC (9.7-13.0)
[2025-06-07 19:08] LABS: ACTIVATED PTT 28.1 SECONDS (25.2-36.5)
[2025-06-07 19:16] LABS: CO2 27.0 mmol/L (21-32); GLUCOSE,RANDOM 86.0 mg/dL (74-106)
[2025-06-07 19:19] LABS: CREATININE 0.8 mg/dL (0.55-1.3); SGOT/AST 29.0 U/L (15-37); SGPT/ALT 24.0 U/L (13-61)
[2025-06-07 19:20] LABS: TOT PROT 7.0 g/dl (6.4-8.2)
[2025-06-07 19:22] LABS: ALK PHOS 59.0 U/L (45-117)
[2025-06-07] MEDS ORDERED: HYDROmorphone HCL CARPU-JECT 2 MG/1 ML DISP.SYRIN ONE (20:37)
[2025-06-08] MEDS: LISINOPRIL 20 MG TABLET PO ONE (00:06)
[2025-06-08 00:42] VITALS: BMI 21.2
[2025-06-08] MEDS ORDERED: ACETAMINOPHEN 325 MG TABLET (FP) PO PRN (06:52)
[2025-06-08 08:49] LABS: ABSOLUTE IMMATURE GRANULOCYTES 0.03 x10^3/uL (0.0-0.031); BASOPHILS # 0.05 x10^3/uL (0.01-0.08); EOSINOPHIL % 1.8 % (0.7-5.8); EOSINOPHILS # 0.13 x10^3/uL (0.04-0.36); MCHC 33.0 g/dl (32.2-35.5); MEAN CELL VOLUME 86.7 fl (79.4-94.8); MEAN PLT VOLUME 10.0 fl (9.4-12.3); MONOCYTE # 0.85 x10^3/uL (0.24-0.86); MONOCYTE % 11.6 % (4.7-12.5); RDW 13.1 % (12.4-16.4)
[2025-06-08 09:10] LABS: CO2 29.0 mmol/L (21-32); GLUCOSE,RANDOM 86.0 mg/dL (74-106)
[2025-06-08 09:12] LABS: SGPT/ALT 23.0 U/L (13-61)
[2025-06-08 09:13] LABS: SGOT/AST 31.0 U/L (15-37)
[2025-06-08 09:14] LABS: CREATININE 0.9 mg/dL (0.55-1.3); TOT PROT 6.5 g/dl (6.4-8.2)
[2025-06-08 09:15] LABS: ALK PHOS 56.0 U/L (45-117)
[2025-06-08] MEDS ORDERED: LISINOPRIL 20 MG TABLET PO SCH (10:00)
[2025-06-08] MEDS ORDERED: NICOTINE 7 MG/24 HOURS TOPICAL PATCH TD SCH (10:00)
[2025-06-08] MEDS: CYANOCOBALAMIN 1,000 MCG TABLET (FP) PO SCH (10:05)
[2025-06-08] MEDS: LISINOPRIL 20 MG TABLET PO SCH (10:05)
[2025-06-08] MEDS: ESCITALOPRAM OXALATE 20 MG TABLET PO SCH (10:05)
[2025-06-08] MEDS: amLODIPine BESYLATE 2.5 MG TABLET (FP) PO SCH (10:05)
[2025-06-08] MEDS: NICOTINE 7 MG/24 HOURS TOPICAL PATCH TD SCH (10:41)
[2025-06-08] MEDS: LACTATED RINGERS SOLUTION 1,000 ML/1,000 ML INFUS.BAG IV SCH (15:24)
[2025-06-09 09:01] LABS: ABSOLUTE IMMATURE GRANULOCYTES 0.02 x10^3/uL (0.0-0.031); BASOPHILS # 0.03 x10^3/uL (0.01-0.08); EOSINOPHIL % 1.5 % (0.7-5.8); EOSINOPHILS # 0.12 x10^3/uL (0.04-0.36); MCHC 34.1 g/dl (32.2-35.5); MEAN CELL VOLUME 85.7 fl (79.4-94.8); MEAN PLT VOLUME 9.4 fl (9.4-12.3); MONOCYTE # 1.02 x10^3/uL (0.24-0.86); MONOCYTE % 12.4 % (4.7-12.5); RDW 12.9 % (12.4-16.4)
[2025-06-09 09:08] LABS: INR 1.15 (0.83-1.09); PROTHROMBIN TIME (PATIENT) 12.5 SEC (9.7-13.0)
[2025-06-09 10:51] LABS: GLUCOSE,RANDOM 89.0 mg/dL (74-106)
[2025-06-09 10:53] LABS: CO2 28.0 mmol/L (21-32)
[2025-06-09 10:55] LABS: CREATININE 0.8 mg/dL (0.55-1.3); SGOT/AST 41.0 U/L (15-37)
[2025-06-09 10:56] LABS: SGPT/ALT 26.0 U/L (13-61); TOT PROT 6.2 g/dl (6.4-8.2)
[2025-06-09 10:58] LABS: ALK PHOS 60.0 U/L (45-117)
[2025-06-09] MEDS: diphenhydrAMINE HCL 25 MG CAPSULE (FP) PO ONE (12:47)
[2025-06-09] MEDS ORDERED: ACETAMINOPHEN 1000 MG/100 ML BAG IVPB PRN (15:40)
[2025-06-09 17:13] LABS: HIV INTERPRETATION NEGATIVE (NEGATIVE)
[2025-06-10 08:58] LABS: ABSOLUTE IMMATURE GRANULOCYTES 0.02 x10^3/uL (0.0-0.031); BASOPHILS # 0.04 x10^3/uL (0.01-0.08); EOSINOPHIL % 2.4 % (0.7-5.8); EOSINOPHILS # 0.15 x10^3/uL (0.04-0.36); MCHC 34.0 g/dl (32.2-35.5); MEAN CELL VOLUME 84.5 fl (79.4-94.8); MEAN PLT VOLUME 9.4 fl (9.4-12.3); MONOCYTE # 0.84 x10^3/uL (0.24-0.86); MONOCYTE % 13.7 % (4.7-12.5); RDW 12.7 % (12.4-16.4)
[2025-06-10 09:01] LABS: INR 1.15 (0.83-1.09); PROTHROMBIN TIME (PATIENT) 12.7 SEC (9.7-13.0)
[2025-06-10 09:48] LABS: GLUCOSE,RANDOM 91.0 mg/dL (74-106)
[2025-06-10 09:50] LABS: SGOT/AST 42.0 U/L (15-37); SGPT/ALT 26.0 U/L (13-61)
[2025-06-10 09:51] LABS: CO2 28.0 mmol/L (21-32); CREATININE 0.6 mg/dL (0.55-1.3)
[2025-06-10 09:52] LABS: TOT PROT 6.0 g/dl (6.4-8.2)
[2025-06-10 09:53] LABS: ALK PHOS 52.0 U/L (45-117)
[2025-06-10] MEDS ORDERED: BUPIVACAINE HCL/PF 0.5% (5MG/ML) 10 ML VIAL ONE (13:40)
[2025-06-10] MEDS ORDERED: MIDAZOLAM HCL 2 MG/2 ML SINGLE DOSE VIAL ONE (13:51)
[2025-06-10] MEDS ORDERED: PROPOFOL 20 ML ONE (13:52)
[2025-06-10] MEDS ORDERED: ONDANSETRON 4 MG/2 ML VIAL ONE (14:48)
[2025-06-10] MEDS ORDERED: DEXAMETHASONE SOD PHOSPHATE 4 MG/1 ML VIAL ONE (14:48)
[2025-06-10] MEDS ORDERED: ONDANSETRON 4 MG/2 ML VIAL IVPUSH PRN (15:27)
[2025-06-10] MEDS: ACETAMINOPHEN INJECTION 100 ML ONE (16:09)
[2025-06-10] MEDS: ACETAMINOPHEN 1000 MG/100 ML BAG IVPB ONE (16:09)
[2025-06-10] MEDS: LACTATED RINGERS SOLUTION 1,000 ML/1,000 ML INFUS.BAG IV SCH (16:52)
[2025-06-10 17:05] VITALS: RESP 18
[2025-06-10] MEDS ORDERED: CEFAZOLIN SODIUM 2 GM VIAL ONE (21:17)
[2025-06-10] MEDS: ACETAMINOPHEN 325 MG TABLET (FP) PO PRN (21:31)
[2025-06-10] MEDS: CEFAZOLIN SODIUM 2 GM in DEXTROSE 5%-WATER 100 ML IVPB SCH (21:31)
[2025-06-10] MEDS ORDERED: CEFAZOLIN SODIUM 2 GM in DEXTROSE 5%-WATER 100 ML IVPB SCH (22:00)
[2025-06-11] MEDS: DOCUSATE SODIUM 100 MG CAPSULE (FP) PO SCH ×2 (07:51→09:36)
[2025-06-11] MEDS: PATIENT'S OWN MEDICATION (NON-FORMULARY) (Azelastine Hcl [Azelastine Hcl] 137 MCG/0.137 ML OU SCH (07:51)
[2025-06-11 09:05] LABS: MCHC 34.1 g/dl (32.2-35.5); MEAN CELL VOLUME 85.8 fl (79.4-94.8); MEAN PLT VOLUME 9.8 fl (9.4-12.3); RDW 12.8 % (12.4-16.4)
[2025-06-11] MEDS: NICOTINE 7 MG/24 HOURS TOPICAL PATCH TD SCH (09:36)
[2025-06-11] MEDS: ESCITALOPRAM OXALATE 20 MG TABLET PO SCH (09:36)
[2025-06-11] MEDS: LISINOPRIL 20 MG TABLET PO SCH (09:36)
[2025-06-11] MEDS: CYANOCOBALAMIN 1,000 MCG TABLET (FP) PO SCH (09:36)
[2025-06-11] MEDS ORDERED: ENOXAPARIN NA (PORCINE) 40 MG/0.4 ML DISP.SYRIN SQ SCH (10:00)
[2025-06-11] MEDS ORDERED: AZELASTINE HCL OU SCH (10:00)
[2025-06-11] MEDS ORDERED: LISINOPRIL 20 MG TABLET PO SCH (10:00)
[2025-06-11 10:02] LABS: CO2 28.0 mmol/L (21-32); GLUCOSE,RANDOM 103.0 mg/dL (74-106)
[2025-06-11 10:04] LABS: SGOT/AST 54.0 U/L (15-37); SGPT/ALT 29.0 U/L (13-61)
[2025-06-11 10:05] LABS: CREATININE 0.8 mg/dL (0.55-1.3)
[2025-06-11 10:06] LABS: TOT PROT 5.6 g/dl (6.4-8.2)
[2025-06-11 10:07] LABS: ALK PHOS 48.0 U/L (45-117)
[2025-06-11 13:55] LABS: MCHC 34.6 g/dl (32.2-35.5); MEAN CELL VOLUME 84.6 fl (79.4-94.8); MEAN PLT VOLUME 9.5 fl (9.4-12.3); RDW 12.8 % (12.4-16.4)
[2025-06-11] MEDS ORDERED: ACETAMINOPHEN 1000 MG/100 ML BAG IVPB PRN (14:30)
[2025-06-11 16:38] LABS: IRON SERUM 23.0 ug/dL (50-175)
[2025-06-12 11:08] VITALS: BP 142/63; PULSE 66; TEMP 99
[2025-06-12] MEDS: ACETAMINOPHEN 1000 MG/100 ML BAG IVPB SCH (11:10)
[2025-06-12] MEDS: ENOXAPARIN NA (PORCINE) 40 MG/0.4 ML DISP.SYRIN SQ SCH (11:11)
[2025-06-12] MEDS: FERROUS SO4 325 MG TABLET (FP) PO SCH (11:12)
[2025-06-12 11:46] LABS: ABSOLUTE IMMATURE GRANULOCYTES 0.07 x10^3/uL (0.0-0.031); BASOPHILS # 0.02 x10^3/uL (0.01-0.08); EOSINOPHIL % 1.3 % (0.7-5.8); EOSINOPHILS # 0.10 x10^3/uL (0.04-0.36); MCHC 33.5 g/dl (32.2-35.5); MEAN CELL VOLUME 85.3 fl (79.4-94.8); MEAN PLT VOLUME 9.0 fl (9.4-12.3); MONOCYTE # 1.11 x10^3/uL (0.24-0.86); MONOCYTE % 14.1 % (4.7-12.5); RDW 12.8 % (12.4-16.4)
== END 2025-06-12 18:01 | DRG 482 ==
LOC: JER 17:08 → JERBED 22:02 → J5S 23:55
PROVIDERS: ADMIT Internal Medicine; ATTEND Internal Medicine
PROC: 0QH606Z Insertion of Intramedullary Internal Fixation Device into Right Upper Femur, Open Approach (ICD-10-PCS; principal; 2025-06-10 13:30)
DX: S72.001A Fracture of unspecified part of neck of right femur, initial encounter for closed fracture (principal); I10 Essential (primary) hypertension; G89.29 Other chronic pain; I16.0 Hypertensive urgency; W06.XXXA Fall from bed, initial encounter; Y93.89 Activity, other specified; Y92.89 Other specified places as the place of occurrence of the external cause; Y99.8 Other external cause status; F41.9 Anxiety disorder, unspecified; D69.6 Thrombocytopenia, unspecified; S72.141A Displaced intertrochanteric fracture of right femur, initial encounter for closed fracture; H10.10 Acute atopic conjunctivitis, unspecified eye
CPT/HCPCS: 36415; 70450-TC; 72125-TC; 73552-TC-RT-FY; 73700-TC-RT; 74176-TC; 76000-TC-FY; 80048; 80053; 82728; 83540; 83550; 83735; 84100; 84484; 85025; 85610; 85730; 86803; 86850; 86900; 86901; 87389; 87522; 93005; 93010; 93306-TC; 94010; 94760; 97116-GP; 97162-GP; 99285-25; C1713